=== PATIENT | female | born 1955 ===

== ENCOUNTER 2023-11-05 11:25 | Outpatient (CLI) | payer OTHER | END 2023-11-05 11:33 | disposition home or self-care (01) | LOC: SONOGRAMA 11:25 | DX: M65.812 Other synovitis and tenosynovitis, left shoulder (principal) ==

== ENCOUNTER 2023-11-15 10:31 | Outpatient (CLI) | payer OTHER | END 2023-11-15 10:32 | disposition home or self-care (01) | LOC: NUCLEAR 10:31 | DX: I87.2 Venous insufficiency (chronic) (peripheral) (principal); R60.0 Localized edema ==